=== PATIENT | female | born 1945 | race Caucasian/White ===

== ENCOUNTER → 2016-11-28 | Outpatient (CLI) | payer OTHER ==
--- NOTE | ~2016-11-28 | TH ---
Unit #: [id number] #: [id number] Patient: VARGAS JACKSON [id number] [address] [place], [place] [address] [id number] MR#: [id number] NAME: VARGAS JACKSON : 1945 SEX: F STUDY DATE/TIME: 11/28/2016 UNIT: CN ROOM: STUDY DESCRIPTION: Imaging and ECG Attending Physician: Boni Chan M.D. Referring Physician: Boni Chan M.D. Primary Care Physician: Wilian Carbone M.D. CARDIOLOGY REPORT EXAM Stress nuclear and ECG combined INDICATION Chest pain, inability to exercise adequately for the diagnosis of obstructive coronary disease. Also for the diagnosis of ischemia as possibly contributing to the abnormal rest ECG and atrial fibrillation. SUMMARY The patient was given Lexiscan intravenously while at rest. Heart rate decreased from 107 to 92, and blood pressure increased from 157/88 to 184/91. There were no symptoms during this study. The resting ECG showed atrial fibrillation, with right bundle branch block pattern, and secondary ST changes. With stress there were no diagnostic ST shifts, no dysrhythmias and no significant ventricular dysrhythmias and no heart block. Technetium-99m Cardiolite, 11.42 and 33.6 mCi were injected at rest and stress respectively. Appropriate views were obtained. FINDINGS: Perfusion images demonstrate normal perfusion throughout the myocardium both at rest and stress. There is diaphragmatic artifact both at rest and stress. Gated wall motion analysis demonstrates mild generalized hypokinesis with moderate hypokinesis of the inferior wall, ejection fraction 46%, likely reflecting conduction abnormalities. Planar images demonstrate no significant patient motion either at rest or stress. There is no increased lung uptake, LV or RV enlargement. Summed stress score is 2, summed difference score is 0. IMPRESSION 1. Stress nuclear study shows no ischemia or infarction. 2. Normal wall motion. 3. Borderline reduced ejection fraction, likely related to atrial fibrillation, and to the bundle branch block. 4. Normal left ventricle size. 5. Nonspecific ECG changes. 6. Based on this study, no change in therapy indicated. Dictated by... Boni Chan M.D. Unit #: [id number] #: [id number] Patient: VARGAS JACKSON DAJUANR/santa TD: 11/28/2016 22:00 JOB #: [id number] CARDIOLOGY REPORT X Boni Chan MD CARDIOLOGY REPORT
== END | disposition home or self-care (01) ==
LOC: CNUC 06:50
DX: I51.89 Other ill-defined heart diseases (principal); I35.0 Nonrheumatic aortic (valve) stenosis; I48.91 Unspecified atrial fibrillation; I10 Essential (primary) hypertension
CPT/HCPCS: 78452; 93017; A9500; J2785